=== PATIENT | female | born 1945 ===

== ENCOUNTER → 2024-04-27 10:02 | Outpatient (REF) | payer MEDICARE, OTHER, SELFPAY | LOC: RAD 10:02 | PROVIDERS: ATTENDING PHYSICIAN Student in an Organized Health Care Education/Training Program | DX: I87.2 Venous insufficiency (chronic) (peripheral) (principal); R94.39 Abnormal result of other cardiovascular function study | CPT/HCPCS: 75574; Q9967 ==